=== PATIENT | male | born 2000 | race Caucasian/White ===

== ENCOUNTER 2025-05-25 14:17 | Emergency (ER) | payer SELFPAY ==
[2025-05-25 14:18] VITALS: BP 173/120; PULSE 97; RESP 18; TEMP 35.9; O2SAT 98; BMI 47.0
--- NOTE | 2025-05-25 14:45 | EKG12_ITS ---
Test Reason : GEN ILLNESS
--- NOTE | 2025-05-25 14:46 | RAD_ITS ---
PROCEDURE: RAD/Chest PA and Lateral
[2025-05-25 15:08] LABS: Hematocrit 44.7 % (40-54); Hemoglobin 15.5 g/dL (13.0-16.5); Immature Granulocytes Count 0.040 X10^3/uL (0.0-0.0); Mean Corp Hgb Conc 34.7 g/dL (32-36); Mean Corpuscular Volume 84.2 fL (80-94); Mean Platelet Vol. 9.5 fl (6.2-12.0); NRBC Flagged by Analyzer 0 % (0-5); Platelet Count 325 K/mm3 (150-450); RBC Distribution Width CV 12.6 % (11.6-14.6); RBC Distribution Width SD 38.2 fl (35.1-43.9); Red Blood Count 5.31 M/mm3 (4.6-6.2); White Blood Count 10.8 K/mm3 (4.4-11.0)
[2025-05-25 15:32] LABS: Anion Gap 11 (5-15); BUN 11 mg/dL (4-19); BUN/Creat Ratio 18.1 RATIO (10-20); Calcium,Total 9.3 mg/dL (7.6-11.0); Carbon Dioxide 24.1 mmol/L (21.0-32.0); Chloride 104 mmol/L (98-108); Estimated Creatinine Clearance 279.89 ml/min (50-250); Glucose 126 mg/dL (70-99); Potassium 3.7 mmol/L (3.3-5.1); Troponin T High Sensitivity < 6 ng/L (<=22)
--- NOTE | 2025-05-25 15:43 | EX.ED.DYSGE1 ---
HPI History of Present Illness Chief Complaint: General Illness Narrative Narrative: Patient is a 24-year-old male presenting to the emergency department for shortness of breath that started 3 days ago and worsened over the past 45 minutes. Patient has a past medical history of hypertension for which she does not take his antihypertensives for. No family history of sudden cardiac . Patient has no cardiac or pulmonary history. Patient denies any sick contacts. Denies any recent travel or hospitalizations or surgeries. Denies any history of DVT or PE. Denies any lower extremity swelling. States that his stomach is also upset. States that this started at the same time about 45 minutes ago. Denies any fever, chills, nausea or vomiting. Denies any difficulty with his bowel movements including diarrhea or constipation. Denies any dysuria or hematuria. Denies any history of abdominal surgeries. [facility] Medical History HTN (hypertension) ADHD Home Medications ?Medication ?Instructions ?Recorded ?Last Taken ?Type NK 05/25/25 Unknown History Allergy/AdvReac Type Severity Reaction Status Date / Time No Known Allergies Allergy Verified 05/25/25 14:18 Social History household members: significant other current occupational status: employed Smoking Status: Never smoker ROS ROS ED ROS Narrative See HPI EXAM Physical Exam Narrative Exam Narrative: Vital signs: Reviewed General: Alert and oriented x 3. No acute distress HEENT: Head is normocephalic and atraumatic, sinuses nontender, pupils equal round and reactive. Nares are patent. Oropharynx and throat exams normal. Neck: Supple without lymphadenopathy nontender Cardiovascular: Regular rate and rhythm, no murmurs. No rubs or gallops. Normal S1 and S2 Respiratory: Clear to auscultation bilaterally. No wheezes, rales, rhonchi Abdominal: Soft and nontender to palpation throughout. Normal bowel sounds. No guarding or rebound. Nonsurgical abdomen Extremities: No lower extremity edema. No tenderness. No bruising. Normal range of motion. Normal sensation. Skin: No rash or redness. Neurological: Cranial nerves II through XII are grossly intact. Normal strength and sensation. Normal cerebellar function The rest of the physical exam is unremarkable Const Vital Signs: 05/25/25 14:18 05/25/25 14:23 05/25/25 16:04 Temperature 96.7 F L Temperature Source Temporal Pulse Rate 97 69 Respiratory Rate 18 20 H Respiratory Effort Normal Non-Labored Respiratory Pattern Normal Blood Pressure 173/120 H 149/86 H Blood Pressure Mean 137 107 Pulse Ox 98 100 Oxygen Delivery Method Room Air MDM MDM MDM Narrative Medical decision making narrative: Patient is a 24-year-old male presenting emergency department for shortness of breath that started 3 days ago send over the past 45 minutes. Patient was seen and examined. Vitals are stable. He is hypertensive at 173/120, states he has a past medical history of hypertension and is noncompliant with his antihypertensives. States he does not know what he supposed to be on. Differential includes but is not limited to: Pneumonia, ACS, hypertensive emergency, viral illness, less likely PE or aortic pathology. PERC negative. No tachycardia. Pulses equal throughout. No ripping or tearing chest pain. EKG shows normal sinus rhythm with a sinus arrhythmia. No ischemic changes. No ST elevation or depression. No abnormal T wave inversions. CBC with no leukocytosis and a normal hemoglobin. BMP with no significant abnormalities. Troponin within normal limits. Patient has had this shortness of breath for about 3 weeks, if it was related to ACS I expect his troponin to be elevated initially. I do not think needs a 2nd or 3rd troponin. Chest x-ray reviewed by myself, no opacities, pneumothorax or wide mediastinum seen. Radiology read with no acute radiographic abnormalities. Patient has no abdominal pain on exam. No guarding or rebound tenderness. With 45 minutes of symptoms I do not think he requires CT imaging of his abdomen. Vitals and labs are largely unremarkable. BP without any antihypertensive intervention has come down to 149/86 after Toradol and Zofran. Patient discharged from the Emergency Department. I do not feel that the patient's evaluation reveals any acute reason for admission at this time. I instructed them to either follow-up with their primary care physician or promptly return to the Emergency Department for reevaluation should symptoms worsen or new symptoms develop. I explained what symptoms would indicate the need to return to the emergency department. Shared decision making was used. The patient voiced understanding of the treatment plan and is agreeable with it. Clinical impression: Dyspnea Abdominal pain History & Record Review Discussion w/independent historian: Patient and Significant other Lab Data Attestation: I reviewed the patient's lab results. Labs: Laboratory Results - last 24 hr 05/25/25 14:55 WBC 10.8 RBC 5.31 Hgb 15.5 Hct 44.7 MCV 84.2 MCH 29.2 MCHC 34.7 RDW Std Deviation 38.2 RDW Coeff of Yeni 12.6 Plt Count 325 MPV 9.5 Immature Gran % (Auto) 0.400 Neut % (Auto) 71.0 H Lymph % (Auto) 18.2 L Rowan % (Auto) 8.8 Eos % (Auto) 1.1 Baso % (Auto) 0.5 Absolute Neuts (auto) 7.7 Absolute Lymphs (auto) 1.97 Nucleated RBC % 0 Sodium 139 Potassium 3.7 Chloride 104 Carbon Dioxide 24.1 Anion Gap 11 BUN 11 Creatinine 0.63 L Estim Creat Clear Calc 279.89 H Est GFR (MDRD) Non-Af 136 BUN/Creatinine Ratio 18.1 Glucose 126 H Calcium 9.3 Troponin T High Sens < 6 Radiography Chest X-Ray - ED: 2 View, Read by ED Physician, Normal, No Acute Disease and No Infiltrates Diagnostic Testing: Clinical Impression(s) from Imaging Studies Chest X-Ray 05/25/25 14:46 IMPRESSION: No acute abnormality Reading Location: [facility] Discharge Plan Triage Chief Complaint: General Illness ED Provider: Eleanor Chamberlain Dx/Rx/DC Orders Clinical Impression: Dyspnea, Abdominal pain Instructions: Abdominal Pain, ED Dyspnea Prescriptions: No Action NK Primary Care Provider: Care Physician,No Primary Referrals: Kirill Mark MD [Med Staff - Active Staff, Family Practice] - As soon as possible Care Physician,No Primary [Primary Care Provider, Medical] Activity Restrictions/Additional Instructions: Your evaluation in the Emergency Department did not reveal any acute reason for admission. However, I want to emphasize that you may be early in the course of a disease process or illness even if it is not present. For this reason you should follow-up within 24 hours for reevaluation with either your primary care physician or if necessary back here in the Emergency Department. You should return to the Emergency Department immediately if your symptoms worsen or new symptoms develop. Print Language: Syriac Disposition Disposition: Home, Self Care
[2025-05-25 16:04] VITALS: BP 149/86; PULSE 69; RESP 20; O2SAT 100
[2025-05-25 16:23] VITALS: BP 149/86; PULSE 69; RESP 20; TEMP 36.6; O2SAT 100
== END 2025-05-25 16:24 | disposition home or self-care (01) ==
PROVIDERS: Emergency Provider Student in an Organized Health Care Education/Training Program; Visit Provider Student in an Organized Health Care Education/Training Program
DX: R06.00 Dyspnea, unspecified (principal); R10.9 Unspecified abdominal pain; I10 Essential (primary) hypertension
CPT/HCPCS: 71046; 80048; 84484; 85025; 93005; 96374; 96375; 99284; A4216; J2405